=== PATIENT | male | born 1955 | race Caucasian/White ===

== ENCOUNTER 2016-10-10 14:37 | Emergency (ER) | payer OTHER ==
[2016-10-10] MEDS ORDERED: traMADol HCl 50 MG TAB ONE (14:57)
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
--- NOTE | 2016-10-10 20:30 | RAD ---
LEFT SHOULDER THREE VIEWS 10/10/16 No acute fracture or dislocation was seen. There is no widening of the AC joint. Bony fragmentation at the end of the distal clavicle just above the AC joint appears to be old. The adjacent ribs appea red intact. IMPRESSION: No acute bony findings. POS: HOME
== END 2016-10-10 16:35 | disposition home or self-care (01) ==
LOC: BURERS 14:37
DX: S43.402A Unspecified sprain of left shoulder joint, initial encounter (principal); I10 Essential (primary) hypertension; F17.210 Nicotine dependence, cigarettes, uncomplicated; Z90.49 Acquired absence of other specified parts of digestive tract; Z86.73 Personal history of transient ischemic attack (TIA), and cerebral infarction without residual deficits; Z79.899 Other long term (current) drug therapy; W19.XXXA Unspecified fall, initial encounter
CPT/HCPCS: 99283